=== PATIENT | female | born 1985 | race Two or more races ===

== ENCOUNTER 2019-12-11 15:40 | Emergency (ER) | payer OTHER ==
[~2019-12-11] VITALS: Ht 157.5 cm; Wt 95.6 kg
[2019-12-11 15:50] VITALS: BP 155/89
[2019-12-11] MEDS ORDERED: CYCL10TA2 PO (16:29)
[2019-12-11] MEDS ORDERED: NAPR-514 PO (16:29)
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
== END 2019-12-11 16:40 | disposition home or self-care (01) ==
LOC: ER 15:40
DX: S16.1XXA Strain of muscle, fascia and tendon at neck level, initial encounter (principal); S09.90XA Unspecified injury of head, initial encounter; S09.93XA Unspecified injury of face, initial encounter; K21.9 Gastro-esophageal reflux disease without esophagitis; Z87.891 Personal history of nicotine dependence; Z91.018 Allergy to other foods; X50.9XXA Other and unspecified overexertion or strenuous movements or postures, initial encounter; Y93.89 Activity, other specified; Y92.89 Other specified places as the place of occurrence of the external cause; Y99.8 Other external cause status
CPT/HCPCS: 99283